=== PATIENT | male | born 1945 | race African-American/Black ===

== ENCOUNTER 2017-03-04 11:17 | Inpatient (IN) | payer MEDICARE, MEDICAID ==
[~2017-03-04] VITALS: Ht 180.3 cm; Wt 62.1 kg
[~2017-03-04 11:17] MED LIST: LEVO500T2 PO
[2017-03-04] MEDS ORDERED: SODIUM CHLORIDE 0.9% 1,000 ML IV ONE (11:44)
[2017-03-04] MEDS ORDERED: FOLIC ACID 1 MG, THIAMINE HCL 100 MG, MVI, ADULT NO.1 10 ML in DEXTROSE 5% WATER 1,000 ML IV ONE ×4 (11:45)
[2017-03-04 13:00] LABS: BASOPHILS % 0.6 % (0.0-2.0); EOSINOPHILS % 3.4 % (0.0-5.0); HEMATOCRIT. 37.2 % (42.0-52.0); HEMOGLOBIN. 12.2 g/dL (14.0-18.0); LYMPHOCYTES % 59.1 % (20.0-50.0); MEAN CORPUSCULAR HEMOGLOBIN 29.2 pg (28.0-32.0); MEAN CORPUSCULAR VOLUME 89.4 fL (80.0-94.0); MEAN PLATELET VOLUME 8.5 fl (7.4-10.4); MONOCYTES % 10.2 % (2.0-8.0); NEUTROPHILS % 26.7 % (40.0-76.0); PLATELET 124 x1000/uL (130-400); RED BLOOD CELL COUNT 4.17 mill/uL (4.7-6.1); RED CELL DISTRIBUTION WIDTH 18.9 % (11.6-14.6)
[2017-03-04 13:06] LABS: INR 1.1; PROTHROMBIN TIME 10.9 sec (9.4-11.6)
[2017-03-04 13:10] LABS: AMMONIA 34 uMol/L (<32)
[2017-03-04 13:22] LABS: CARBON DIOXIDE 24 mEq/L (21-32); CHLORIDE 112 mEq/L (98-107); CREATINE KINASE 353 IU/L (39-308)
[2017-03-04 13:41] LABS: CARBAMAZEPINE < 0.5 ug/mL (4-12); ETHANOL BLOOD 313 mg/dL; PHENOBARBITAL < 2.1 ug/mL (15.0-40.0); TROPONIN I 0.85 ng/mL (0.00-0.04)
[2017-03-04] MEDS ORDERED: ASPIRIN 325MG EC TABLET PO ONE (14:30)
[2017-03-04 14:34] LABS: GLUCOSE URINE NEGATIVE (NEGATIVE); KETONES URINE NEGATIVE (NEGATIVE); LEUKOCYTE ESTERASE URINE NEGATIVE (NEGATIVE); NITRITE URINE NEGATIVE (NEGATIVE); OCCULT BLOOD URINE NEGATIVE (NEGATIVE); PH URINE 5.5 (4.5-8.0); PROTEIN URINE NEGATIVE (NEGATIVE); SPECIFIC GRAVITY URINE 1.006 (1.005-1.030); UROBILINOGEN URINE 0.2 E.U./dL (0.2-1.0)
[2017-03-04 14:35] LABS: CLARITY URINE CLEAR (CLEAR); COLOR URINE YELLOW (YELLOW)
[2017-03-04 15:03] LABS: *AMPHETAMINES SCREEN URINE NEGATIVE (NEGATIVE); *BARBITURATES SCREEN URINE NEGATIVE (NEGATIVE); *BENZODIAZEPINES SCREEN URINE NEGATIVE (NEGATIVE); *COCAINE SCREEN URINE NEGATIVE (NEGATIVE); CANNABINOID URINE SCREEN NEGATIVE (NEGATIVE); METHADONE URINE SCREEN NEGATIVE (NEGATIVE); OPIATES URINE SCREEN NEGATIVE (NEGATIVE); PHENCYCLIDINE URINE SCREEN NEGATIVE (NEGATIVE)
[2017-03-04 19:39] VITALS: BP 117/81
[2017-03-04 20:00] VITALS: BP 117/81
[2017-03-04] MEDS ORDERED: HYDROCODONE/ACETAMINOPHEN 5/325MG TABLET PO PRN (23:00)
[2017-03-04] MEDS ORDERED: DOCUSATE SODIUM 100MG CAPSULE PO PRN (23:00)
[2017-03-04] MEDS ORDERED: DIPHENHYDRAMINE 50MG/ML VIAL IV PRN (23:00)
[2017-03-04] MEDS ORDERED: IPRATROPIUM/ALBUTEROL 0.5-3(2.5)MG/3ML NEB INH PRN (23:00)
[2017-03-04] MEDS ORDERED: MAGNESIUM/ALUMINUM HYDROXIDE/SIMETHICONE 30ML UDC PO PRN (23:00)
[2017-03-04] MEDS ORDERED: CLONIDINE 0.1MG TABLET PO PRN (23:00)
[2017-03-04] MEDS ORDERED: ONDANSETRON HCL 4MG/2ML VIAL IV PRN (23:00)
[2017-03-04] MEDS ORDERED: ACETAMINOPHEN 650MG SUPP PR PRN (23:00)
[2017-03-04] MEDS ORDERED: ACETAMINOPHEN 325MG TABLET PO PRN (23:00)
[2017-03-04] MEDS ORDERED: GUAIFENESIN 200MG/10ML SUGAR FREE UDC PO PRN (23:00)
[2017-03-04] MEDS ORDERED: NA PHOS,M-B/NA PHOS,DI-BA ENEMA 118ML PR PRN (23:00)
[2017-03-04] MEDS ORDERED: ACETAMINOPHEN 650MG/20.3ML UDC GT PRN (23:00)
[2017-03-04] MEDS ORDERED: LORAZEPAM 2MG/ML CPJ IV PRN (23:00)
[2017-03-04] MEDS: METOPROLOL TARTRATE 25MG TABLET PO SCH (23:57)
[2017-03-05] VITALS (7 sets, daily range): BP systolic 127–164; BP diastolic 79–88
[2017-03-05] MEDS: SODIUM CHLORIDE 0.9% INJ 3ML FLUSH IVF SCH ×3 (05:52→21:31)
[2017-03-05 06:37] LABS: HEMATOCRIT. 33.5 % (42.0-52.0); HEMOGLOBIN. 11.3 g/dL (14.0-18.0); MEAN CORPUSCULAR HEMOGLOBIN 29.4 pg (28.0-32.0); MEAN CORPUSCULAR VOLUME 87.4 fL (80.0-94.0); MEAN PLATELET VOLUME 8.8 fl (7.4-10.4); PLATELET 123 x1000/uL (130-400); RED BLOOD CELL COUNT 3.83 mill/uL (4.7-6.1); RED CELL DISTRIBUTION WIDTH 19.1 % (11.6-14.6)
[2017-03-05 08:13] LABS: CARBON DIOXIDE 27 mEq/L (21-32); CHLORIDE 109 mEq/L (98-107); HDL CHOLESTEROL 66 mg/dL (40-59); LDL CHOLESTEROL 80 mg/dL (5-100)
[2017-03-05 08:25] LABS: PLATELET ESTIMATE SLIGHTLY DECREASED
[2017-03-05] MEDS: CLOPIDOGREL 75MG TABLET PO SCH (08:32)
[2017-03-05] MEDS: ENOXAPARIN 40MG/0.4ML SYR SUBCUT SCH (08:32)
[2017-03-05] MEDS: ASPIRIN 81MG TABLET PO SCH (08:33)
[2017-03-05] MEDS: METOPROLOL TARTRATE 25MG TABLET PO SCH ×2 (08:33→21:32)
[2017-03-05] MEDS ORDERED: ASPIRIN 81MG EC TABLET PO SCH (09:00)
[2017-03-05 11:31] LABS: T4 FREE 1.07 ng/dL (0.76-1.46)
[2017-03-05] MEDS ORDERED: REGADENOSON 0.4 MG/5 ML IV NR (18:00)
[2017-03-05 18:01] LABS: CREATINE KINASE MB FRACTION 4.1 ng/mL (0.5-3.6)
[2017-03-05 19:55] LABS: CARBON DIOXIDE 24 mEq/L (21-32); CHLORIDE 106 mEq/L (98-107)
[2017-03-05 20:13] LABS: TROPONIN I 0.55 ng/mL (0.00-0.04)
[2017-03-05 23:27] LABS: CLARITY URINE CLEAR (CLEAR); COLOR URINE YELLOW (YELLOW); GLUCOSE URINE NEGATIVE (NEGATIVE); KETONES URINE NEGATIVE (NEGATIVE); LEUKOCYTE ESTERASE URINE NEGATIVE (NEGATIVE); NITRITE URINE NEGATIVE (NEGATIVE); OCCULT BLOOD URINE NEGATIVE (NEGATIVE); PROTEIN URINE NEGATIVE (NEGATIVE); SPECIFIC GRAVITY URINE 1.016 (1.005-1.030)
[2017-03-05 23:31] LABS: *AMPHETAMINES SCREEN URINE NEGATIVE (NEGATIVE); *BARBITURATES SCREEN URINE NEGATIVE (NEGATIVE); *BENZODIAZEPINES SCREEN URINE NEGATIVE (NEGATIVE); *COCAINE SCREEN URINE NEGATIVE (NEGATIVE); CANNABINOID URINE SCREEN NEGATIVE (NEGATIVE); METHADONE URINE SCREEN NEGATIVE (NEGATIVE); OPIATES URINE SCREEN NEGATIVE (NEGATIVE); PHENCYCLIDINE URINE SCREEN NEGATIVE (NEGATIVE)
[2017-03-06] VITALS (7 sets, daily range): BP systolic 126–168; BP diastolic 69–88
[2017-03-06 00:37] LABS: HEMATOCRIT. 35.2 % (42.0-52.0); HEMOGLOBIN. 11.7 g/dL (14.0-18.0); MEAN CORPUSCULAR VOLUME 87.5 fL (80.0-94.0); MEAN PLATELET VOLUME 8.2 fl (7.4-10.4); PLATELET 120 x1000/uL (130-400); RED BLOOD CELL COUNT 4.02 mill/uL (4.7-6.1); RED CELL DISTRIBUTION WIDTH 18.7 % (11.6-14.6)
[2017-03-06 00:53] LABS: CREATINE KINASE MB FRACTION 3.6 ng/mL (0.5-3.6)
[2017-03-06 05:02] LABS: PLATELET ESTIMATE SLIGHTLY DECREASED
[2017-03-06] MEDS: SODIUM CHLORIDE 0.9% INJ 3ML FLUSH IVF SCH ×2 (06:00→14:00)
[2017-03-06] MEDS ORDERED: REGADENOSON 0.4 MG/5 ML IV ONE (09:33)
[2017-03-06] MEDS: CLOPIDOGREL 75MG TABLET PO SCH (10:57)
[2017-03-06] MEDS: ENOXAPARIN 40MG/0.4ML SYR SUBCUT SCH (10:57)
[2017-03-06] MEDS: ASPIRIN 81MG TABLET PO SCH (10:57)
[2017-03-06] MEDS: METOPROLOL TARTRATE 25MG TABLET PO SCH ×2 (10:57→21:00)
[2017-03-06 13:11] LABS: CREATINE KINASE MB FRACTION 3.4 ng/mL (0.5-3.6)
[2017-03-06] MEDS ORDERED: METO25TA6 PO (18:43)
[2017-03-06] MEDS ORDERED: CLOP75TA16 PO (18:43)
[2017-03-06] MEDS ORDERED: ASPI-1160 PO (18:43)
== END 2017-03-06 23:00 | disposition home or self-care (01) | DRG 775 ==
LOC: ER 11:33 → 6WST 14:52 → ENRESERV 16:27
PROVIDERS: ADMIT Family Medicine; ATTEND Family Medicine
DX: F10.129 Alcohol abuse with intoxication, unspecified (principal); E44.1 Mild protein-calorie malnutrition; G31.2 Degeneration of nervous system due to alcohol; I10 Essential (primary) hypertension; F17.210 Nicotine dependence, cigarettes, uncomplicated; E78.5 Hyperlipidemia, unspecified; Z86.73 Personal history of transient ischemic attack (TIA), and cerebral infarction without residual deficits
CPT/HCPCS: 36415; 70450; 71010; 78452; 80048; 80053; 80061; 80156; 80165; 80184; 80185; 80305; 81003; 82140; 82550; 82553; 83036; 83735; 83880; 84439; 84443; 84484; 85025; 85379; 85610; 93005; 93017; 93306; 93970; 96365; 96366; 99285; A9500; G0482; J1650; J2785; J3411; J3490; J7030; J7070

== ENCOUNTER 2018-01-27 14:47 | Emergency (ER) | payer MEDICARE, MEDICAID ==
[~2018-01-27] VITALS: Ht 180.3 cm; Wt 67.0 kg
[~2018-01-27 14:47] MED LIST changes: +ASPI-1160 PO; +CLOP75TA16 PO; -LEVO500T2 PO; +METO25TA6 PO
[2018-01-27] MEDS ORDERED: HYDROCODONE/ACETAMINOPHEN 5/325MG TABLET PO STA (15:14)
[2018-01-27 15:50] LABS: CHLORIDE 112 mEq/L (98-107)
[2018-01-27 15:59] LABS: HEMATOCRIT. 26.9 % (42.0-52.0); HEMOGLOBIN. 8.5 g/dL (14.0-18.0); MEAN CORPUSCULAR HEMOGLOBIN 23.8 pg (28.0-32.0); MEAN CORPUSCULAR VOLUME 75.6 fL (80.0-94.0); MEAN PLATELET VOLUME 7.1 fl (7.4-10.4); PLATELET 182 x1000/uL (130-400); RED BLOOD CELL COUNT 3.56 mill/uL (4.7-6.1); RED CELL DISTRIBUTION WIDTH 20.8 % (11.6-14.6)
[2018-01-27 16:51] LABS: PLATELET ESTIMATE NORMAL
[2018-01-30 13:45] VITALS: BP 145/89
== END 2018-01-30 13:49 | disposition home or self-care (01) ==
LOC: ER 14:53
DX: S02.2XXB Fracture of nasal bones, initial encounter for open fracture (principal); S09.90XA Unspecified injury of head, initial encounter; I10 Essential (primary) hypertension; D64.9 Anemia, unspecified; F17.200 Nicotine dependence, unspecified, uncomplicated; Z96.649 Presence of unspecified artificial hip joint; Z86.73 Personal history of transient ischemic attack (TIA), and cerebral infarction without residual deficits; W01.0XXA Fall on same level from slipping, tripping and stumbling without subsequent striking against object, initial encounter; Y93.89 Activity, other specified; Y92.018 Other place in single-family (private) house as the place of occurrence of the external cause
CPT/HCPCS: 12011; 36415; 70450; 70486; 80053; 85025; 85610; 99285

== ENCOUNTER 2018-03-06 20:41 | Inpatient (IN) | payer MEDICARE, MEDICAID ==
[~2018-03-06] VITALS: Ht 180.3 cm; Wt 66.2 kg
[2018-03-06] MEDS ORDERED: SODIUM CHLORIDE 0.9% 1,000 ML IV ONE (22:17)
[2018-03-06] MEDS ORDERED: LIDOCAINE 1%/EPI 1:100,000 10 ML VIAL IJ ONE (22:30)
[2018-03-06] MEDS ORDERED: KETOROLAC 30MG/ML VIAL IV ONE (22:30)
[2018-03-06] MEDS ORDERED: BACITRACIN ZINC OINT UDPKT TOP ONE (22:30)
[2018-03-06 22:50] LABS: HEMATOCRIT. 22.9 % (42.0-52.0); MEAN CORPUSCULAR HEMOGLOBIN 20.4 pg (28.0-32.0); MEAN CORPUSCULAR VOLUME 69.1 fL (80.0-94.0); MEAN PLATELET VOLUME 7.5 fl (7.4-10.4); PLATELET 174 x1000/uL (130-400); RED BLOOD CELL COUNT 3.31 mill/uL (4.7-6.1); RED CELL DISTRIBUTION WIDTH 19.5 % (11.6-14.6)
[2018-03-06 22:53] LABS: CHLORIDE 111 mEq/L (98-107)
[2018-03-06 22:55] LABS: HEMOGLOBIN. 6.8 g/dL (14.0-18.0)
[2018-03-06 22:57] LABS: ETHANOL BLOOD 183 mg/dL; PARTIAL THROMBOPLASTIN TIME 25.2 sec (23.4-31.0)
[2018-03-06 23:20] LABS: NUCLEATED RED BLOOD CELLS 1 /100 WBC; PLATELET ESTIMATE NORMAL
[2018-03-07] VITALS (7 sets, daily range): BP systolic 134–169; BP diastolic 73–99
[2018-03-07] MEDS ORDERED: MORPHINE SULFATE 4 MG/ML CPJ (NOT FOR IM USE) IV PRN (00:45)
[2018-03-07] MEDS ORDERED: HYDROCODONE/ACETAMINOPHEN 5/325MG TABLET PO PRN (00:45)
[2018-03-07] MEDS ORDERED: LORAZEPAM 2MG/ML CPJ IV PRN (00:45)
[2018-03-07] MEDS ORDERED: CLONIDINE 0.1MG TABLET PO PRN (00:45)
[2018-03-07] MEDS ORDERED: DOCUSATE SODIUM 100MG CAPSULE PO PRN (00:45)
[2018-03-07 01:27] LABS: TOTAL IRON BINDING CAPACITY 497 ug/dL (250-450)
[2018-03-07 01:32] LABS: *BARBITURATES SCREEN URINE NEGATIVE (NEGATIVE); *BENZODIAZEPINES SCREEN URINE NEGATIVE (NEGATIVE); *COCAINE SCREEN URINE NEGATIVE (NEGATIVE); METHADONE URINE SCREEN NEGATIVE (NEGATIVE); OPIATES URINE SCREEN NEGATIVE (NEGATIVE)
[2018-03-07 01:33] LABS: *AMPHETAMINES SCREEN URINE NEGATIVE (NEGATIVE); CANNABINOID URINE SCREEN NEGATIVE (NEGATIVE); PHENCYCLIDINE URINE SCREEN NEGATIVE (NEGATIVE)
[2018-03-07] MEDS: DEXT 5%/0.45% NACL 1000ML 1,000 ML IV SCH ×2 (05:05→20:39)
[2018-03-07] MEDS: FOLIC ACID 1MG TABLET PO SCH (08:06)
[2018-03-07] MEDS: AMLODIPINE 10MG TABLET PO SCH (08:06)
[2018-03-07] MEDS: THIAMINE HCL 100MG TABLET PO SCH (08:06)
[2018-03-07] MEDS: MULTIVITAMINS,THER W-MINERALS TABLET PO SCH (08:06)
[2018-03-07 10:11] LABS: HEMATOCRIT. 23.9 % (42.0-52.0); HEMOGLOBIN. 7.4 g/dL (14.0-18.0); MEAN CORPUSCULAR HEMOGLOBIN 22.4 pg (28.0-32.0); MEAN CORPUSCULAR VOLUME 72.8 fL (80.0-94.0); MEAN PLATELET VOLUME 8.1 fl (7.4-10.4); PLATELET 153 x1000/uL (130-400); RED BLOOD CELL COUNT 3.28 mill/uL (4.7-6.1); RED CELL DISTRIBUTION WIDTH 21.7 % (11.6-14.6)
[2018-03-07 10:42] LABS: CREATINE KINASE MB FRACTION 4.3 ng/mL (0.5-3.6)
[2018-03-07 11:37] LABS: NUCLEATED RED BLOOD CELLS 1 /100 WBC
[2018-03-07 11:38] LABS: PLATELET ESTIMATE NORMAL
[2018-03-07] MEDS ORDERED: FERROUS SULFATE 325MG TABLET PO SCH (12:40)
[2018-03-07] MEDS ORDERED: METOCLOPRAMIDE HCL 10MG/2ML VIAL IV NR ×4 (15:00→23:00)
[2018-03-07] MEDS ORDERED: BISACODYL 5MG TABLET PO NR ×4 (15:00→23:00)
[2018-03-07 15:49] LABS: CREATINE KINASE MB FRACTION 3.2 ng/mL (0.5-3.6)
[2018-03-07] MEDS ORDERED: SORBITOL 70% SOLN 30ML PO NR ×2 (16:00→20:00)
[2018-03-07 17:01] LABS: HEPATITIS B SURFACE ANTIGEN NEGATIVE
[2018-03-07] MEDS: IRON SUCROSE COMPLEX 100 MG/5 ML ML IV SCH (17:06)
[2018-03-07 17:29] LABS: HEPATITIS B CORE AB IGM NEGATIVE
[2018-03-07 17:31] LABS: HEPATITIS A AB IGM NEGATIVE (NEGATIVE)
[2018-03-07 17:49] LABS: CHLORIDE 109 mEq/L (98-107)
[2018-03-07 17:54] LABS: PHOSPHORUS 2.5 mg/dL (2.5-4.9)
[2018-03-07 20:07] LABS: HEMATOCRIT 32.7 % (42.0-52.0); HEMOGLOBIN 10.4 g/dL (14.0-18.0)
[2018-03-08] VITALS: BP 109/73
[2018-03-08] MEDS ORDERED: SORBITOL 70% SOLN 30ML PO NR
[2018-03-08 01:40] LABS: HEMATOCRIT 37.6 % (42.0-52.0); HEMOGLOBIN 11.9 g/dL (14.0-18.0)
[2018-03-08 04:00] VITALS: BP 113/73
[2018-03-08] MEDS: NA PHOS,M-B/NA PHOS,DI-BA ENEMA 118ML PR NR (05:49)
[2018-03-08 06:20] LABS: HEMATOCRIT. 35.1 % (42.0-52.0); HEMOGLOBIN. 11.5 g/dL (14.0-18.0); MEAN CORPUSCULAR HEMOGLOBIN 24.1 pg (28.0-32.0); MEAN CORPUSCULAR VOLUME 73.9 fL (80.0-94.0); PLATELET 201 x1000/uL (130-400); RED BLOOD CELL COUNT 4.75 mill/uL (4.7-6.1); RED CELL DISTRIBUTION WIDTH 23.9 % (11.6-14.6)
[2018-03-08 06:22] LABS: PARTIAL THROMBOPLASTIN TIME 24.3 sec (23.4-31.0); PROTHROMBIN TIME 10.4 sec (9.1-11.1)
[2018-03-08 06:28] LABS: CHLORIDE 118 mEq/L (98-107)
[2018-03-08 06:38] LABS: PHOSPHORUS 4.6 mg/dL (2.5-4.9)
[2018-03-08 06:39] LABS: LDL CHOLESTEROL 58 mg/dL (5-100)
[2018-03-08 06:41] LABS: HDL CHOLESTEROL 62 mg/dL (40-59)
[2018-03-08 08:00] VITALS: BP 102/71
[2018-03-08] MEDS: FOLIC ACID 1MG TABLET PO SCH (08:18)
[2018-03-08] MEDS: THIAMINE HCL 100MG TABLET PO SCH (08:18)
[2018-03-08] MEDS: AMLODIPINE 10MG TABLET PO SCH (08:18)
[2018-03-08] MEDS: MULTIVITAMINS,THER W-MINERALS TABLET PO SCH (08:18)
[2018-03-08 08:36] LABS: NUCLEATED RED BLOOD CELLS 2 /100 WBC
[2018-03-08 08:37] LABS: PLATELET ESTIMATE NORMAL
[2018-03-08] MEDS: PANTOPRAZOLE SODIUM 40 MG/VIAL IV SCH (09:13)
[2018-03-08] MEDS: DEXTROSE 5% WATER 1,000 ML IV SCH ×2 (10:15→23:20)
[2018-03-08] MEDS ORDERED: MIDAZOLAM HCL 5 MG/5 ML VIAL ONE (11:45)
[2018-03-08] MEDS ORDERED: SIMETHICONE 40 MG/0.6 ML 30ML ONE (11:45)
[2018-03-08] MEDS ORDERED: FENTANYL CITRATE/PF 50MCG/ML 2ML VIAL ONE (11:46)
[2018-03-08 12:00] VITALS: BP 144/86
[2018-03-08] MEDS ORDERED: MIDAZOLAM HCL 2 MG/2 ML VIAL IV PRN (12:06)
[2018-03-08] MEDS ORDERED: FENTANYL CITRATE/PF 50MCG/ML 2ML VIAL IV PRN (12:07)
[2018-03-08] MEDS: IRON SUCROSE COMPLEX 100 MG/5 ML ML IV SCH (14:47)
[2018-03-08 16:00] VITALS: BP_SYST 152; BP_SYST 162; BP_DIAS 68; BP_DIAS 93
[2018-03-08 20:00] VITALS: BP 148/71
[2018-03-09] VITALS (8 sets, daily range): BP systolic 115–152; BP diastolic 57–79
[2018-03-09] MEDS: NA PHOS,M-B/NA PHOS,DI-BA ENEMA 118ML PR NR (04:55)
[2018-03-09 07:42] LABS: HEMATOCRIT. 28.9 % (42.0-52.0); HEMOGLOBIN. 9.1 g/dL (14.0-18.0); MEAN CORPUSCULAR HEMOGLOBIN 23.8 pg (28.0-32.0); MEAN CORPUSCULAR VOLUME 75.7 fL (80.0-94.0); MEAN PLATELET VOLUME 8.8 fl (7.4-10.4); PLATELET 163 x1000/uL (130-400); RED BLOOD CELL COUNT 3.83 mill/uL (4.7-6.1); RED CELL DISTRIBUTION WIDTH 23.7 % (11.6-14.6)
[2018-03-09] MEDS: PANTOPRAZOLE SODIUM 40 MG/VIAL IV SCH (08:45)
[2018-03-09] MEDS: FOLIC ACID 1MG TABLET PO SCH (08:45)
[2018-03-09] MEDS: MULTIVITAMINS,THER W-MINERALS TABLET PO SCH (08:45)
[2018-03-09] MEDS: AMLODIPINE 10MG TABLET PO SCH (08:45)
[2018-03-09] MEDS: THIAMINE HCL 100MG TABLET PO SCH (08:45)
[2018-03-09 09:07] LABS: CHLORIDE 114 mEq/L (98-107)
[2018-03-09 09:19] LABS: PLATELET ESTIMATE NORMAL
[2018-03-09] MEDS: DEXTROSE 5% WATER 1,000 ML IV SCH (11:59)
[2018-03-09] MEDS: IRON SUCROSE COMPLEX 100 MG/5 ML ML IV SCH (13:43)
[2018-03-10] MEDS: DEXTROSE 5% WATER 1,000 ML IV SCH ×2 (02:00→15:20)
[2018-03-10 04:00] VITALS: BP 116/80
[2018-03-10 08:00] VITALS: BP 134/65
[2018-03-10] MEDS: PANTOPRAZOLE SODIUM 40 MG/VIAL IV SCH ×2 (09:00→09:51)
[2018-03-10] MEDS: THIAMINE HCL 100MG TABLET PO SCH (09:51)
[2018-03-10] MEDS: MULTIVITAMINS,THER W-MINERALS TABLET PO SCH (09:51)
[2018-03-10] MEDS: AMLODIPINE 10MG TABLET PO SCH (09:51)
[2018-03-10] MEDS: FOLIC ACID 1MG TABLET PO SCH (09:51)
[2018-03-10 11:58] LABS: HEMATOCRIT. 30.8 % (42.0-52.0); HEMOGLOBIN. 9.6 g/dL (14.0-18.0); MEAN CORPUSCULAR HEMOGLOBIN 23.5 pg (28.0-32.0); MEAN CORPUSCULAR VOLUME 74.9 fL (80.0-94.0); MEAN PLATELET VOLUME 8.6 fl (7.4-10.4); PLATELET 161 x1000/uL (130-400); RED BLOOD CELL COUNT 4.11 mill/uL (4.7-6.1); RED CELL DISTRIBUTION WIDTH 24.9 % (11.6-14.6)
[2018-03-10] MEDS: IRON SUCROSE COMPLEX 100 MG/5 ML ML IV SCH (14:00)
[2018-03-10] MEDS ORDERED: SODIUM CHLORIDE 0.9% 10ML VIAL ONE (14:32)
[2018-03-10 14:51] VITALS: BP 109/68
[2018-03-11 13:45] LABS: NUCLEATED RED BLOOD CELLS 1 /100 WBC; PLATELET ESTIMATE NORMAL
== END 2018-03-10 15:20 | disposition home or self-care (01) | DRG 242 ==
LOC: ER 20:41 → EDBEDREQ 23:53 → EDBEDREQTM 23:53 → 8WST 03-07 00:11 → EDBEDREQTM 03-07 00:16 → EDBEDREQ 03-07 00:16 → EDBEDREQDT 03-07 00:16 → SUPCPDRO 03-07 00:35 → ENRESERV 03-07 01:46
PROVIDERS: ADMIT Hospitalist; ATTEND Hospitalist
PROC: 0HQ1XZZ Repair Face Skin, External Approach (ICD-10-PCS; principal; 2018-03-06)
PROC: 30233N1 Transfusion of Nonautologous Red Blood Cells into Peripheral Vein, Percutaneous Approach (ICD-10-PCS; 2018-03-07)
PROC: 0DB78ZX Excision of Stomach, Pylorus, Via Natural or Artificial Opening Endoscopic, Diagnostic (ICD-10-PCS; 2018-03-08)
PROC: 0DJD8ZZ Inspection of Lower Intestinal Tract, Via Natural or Artificial Opening Endoscopic (ICD-10-PCS; 2018-03-08)
DX: I85.00 Esophageal varices without bleeding (principal); E87.0 Hyperosmolality and hypernatremia; E44.1 Mild protein-calorie malnutrition; D50.9 Iron deficiency anemia, unspecified; F10.129 Alcohol abuse with intoxication, unspecified; B19.20 Unspecified viral hepatitis C without hepatic coma; K70.30 Alcoholic cirrhosis of liver without ascites; K44.9 Diaphragmatic hernia without obstruction or gangrene; R04.0 Epistaxis; Z96.641 Presence of right artificial hip joint; K29.60 Other gastritis without bleeding; K20.9 Esophagitis, unspecified; I10 Essential (primary) hypertension; S01.112A Laceration without foreign body of left eyelid and periocular area, initial encounter; X58.XXXA Exposure to other specified factors, initial encounter; Y93.89 Activity, other specified; Y92.89 Other specified places as the place of occurrence of the external cause; Y99.8 Other external cause status; Z86.73 Personal history of transient ischemic attack (TIA), and cerebral infarction without residual deficits; Z87.19 Personal history of other diseases of the digestive system; Z79.02 Long term (current) use of antithrombotics/antiplatelets; Z68.20 Body mass index [BMI] 20.0-20.9, adult
CPT/HCPCS: 36415; 36430; 70450; 71045; 73030; 73502; 80048; 80053; 80061; 80305; 82270; 82550; 82553; 82728; 83540; 83550; 83735; 83880; 84100; 84484; 85014; 85018; 85025; 85610; 85730; 86705; 86709; 86803; 86850; 86900; 86920; 87340; 88305; 88312; 88313; 93005; 96361; 96374; 99152; 99285; A4216; C9113; G0482; J1885; J2250; J2270; J2765; J3010; J3490; J7030; J7050; J7070; P9016